=== PATIENT | male | born 1990 | race Caucasian/White ===

== ENCOUNTER 2023-02-25 02:02 | Emergency (ER) | payer MEDICAID ==
[~2023-02-25] VITALS: Ht 170.2 cm; Wt 77.0 kg
[2023-02-25 02:04] VITALS: BP 108/56; PULSE 128; RESP 16; TEMP 98.2; O2SAT 98
[2023-02-25] MEDS ORDERED: LIDOCAINE HCL/PF 1% 10 MG/ML 5ML VIAL INFIL ONE (02:30)
[2023-02-25] MEDS ORDERED: CEPH500T MT (03:51)
== END 2023-02-25 04:22 | disposition home or self-care (01) ==
LOC: ER 02:24
DX: S61.411A Laceration without foreign body of right hand, initial encounter (principal); D64.9 Anemia, unspecified; Z85.9 Personal history of malignant neoplasm, unspecified; X58.XXXA Exposure to other specified factors, initial encounter; Y93.89 Activity, other specified; Y92.89 Other specified places as the place of occurrence of the external cause; Y99.8 Other external cause status
CPT/HCPCS: 12002; 99283; J3490; Z7610

== ENCOUNTER 2024-09-21 03:52 | Emergency (ER) | payer MEDICAID ==
[~2024-09-21] VITALS: Ht 182.9 cm; Wt 100.0 kg
[~2024-09-21 03:52] MED LIST: CEPH500T MT
[2024-09-21 03:56] VITALS: BP 111/71; PULSE 99; RESP 18; TEMP 36.5; O2SAT 96
== END 2024-09-21 04:55 | disposition home or self-care (01) ==
LOC: ER 03:52
DX: F10.129 Alcohol abuse with intoxication, unspecified (principal); Y90.9 Presence of alcohol in blood, level not specified
CPT/HCPCS: 99283